=== PATIENT | male | born 1970 | race Caucasian/White ===

== ENCOUNTER 2024-04-08 14:59 | Outpatient (AMB) | payer MEDICAID, SELFPAY ==
--- NOTE | 2024-04-08 15:07 | GSCOFFNT_ITS ---
Vital Signs - [facility] 04/08/24 15:08 Height 1.73 m Height Method Stated Weight 72.83 kg Weight Measurement Method Standing Scale BMI 24.3 BP 137/87 H Blood Pressure Source Automatic Cuff Blood Pressure Location Right Upper Arm Position Sitting Respiration 19 Pulse 74 Pulse Source Monitor Temp 98.2 F Temp Source Temporal Artery Scan Pulse Oximetry (%) 96 Oxygen Delivery Method Room Air Med/Allergies Allergies & Medications Allergies No Known Allergies Allergy (Mild, Verified 04/08/24 15:08) Medication Reconciliation cephalexin 500 mg capsule 500 mg PO Q6H PRN Spasms 03/19/24 [History Confirmed 04/08/24] docusate sodium 100 mg capsule 100 mg PO DAILY 03/19/24 [History Confirmed 04/08/24] mupirocin 2 % topical ointment 1 ea topical BID 03/19/24 [History Confirmed 04/08/24] docusate sodium 100 mg capsule (Colace) 100 mg PO QDAY PRN constipation #30 caps 03/20/24 [Rx Confirmed 04/08/24] oxycodone-acetaminophen 5 mg-325 mg tablet (Percocet) 1 tab PO Q6HR PRN pain #20 tabs 03/20/24 [Rx Confirmed 04/08/24] MA Intake Visit Data Collection New Patient or Established: Established Patient (seen at [facility] within 3 years) Seen by Clinical Staff ONLY (RN/ESTEE): No Reason for Visit:: F/U HERNIA REPAIR Pain Present Currently: No [employer] Required: No PCP or OBGYN visit in last 3 months: Yes Hx Now: No Do You Feel Safe at Home: Yes Authorities Contacted: N/A Smoking Status Smoking Status: Never smoker Immunization / Flu Flu Vaccine in the Last 12 Months: No Flu Vaccine Exclusion Criteria: Refused by Patient Past Medical History Past Medical History NEUROLOGIC: Positive Neurological Disorders; Negative Seizures CARDIAC: Negative Cardiac Disorders or Congestive Heart Failure RESPIRATORY: Negative Chronic Obstructive Pulmonary Disease (COPD) GASTROINTESTINAL: Positive Gastrointestinal Disorders and Hemorrhoids; Negative Hepatitis GENITOURINARY: Negative Genitourinary Disorders or Renal Disease ENDOCRINE: Negative Endocrine Disorders, Diabetes Mellitus Type 1 or Diabetes Mellitus Type 2 HEMATOLOGIC: Negative Blood Disorders PSYCHO/SOCIAL: Positive Depression (no meds) and Anxiety OTHER HISTORY: Positive Chicken Pox, Measles and Mumps; Negative Hospitalization, Autoimmune Disease, Shingles, Blood Transfusions, Blood Transfusion Reaction, Anesthesia Reactions or Cancer Family History FAMILY HISTORY: Positive Family Cancer; Negative Family Psychiatric Problems, Family Respiratory Disorders, Family Cardiac Disorders, Family Gastrointestinal Problems, Family Surgery or Family Anesthesia Reaction Social History SMOKING STATUS: Smoking status: Never smoker ALCOHOL: Alcohol Intake: Current HOUSING: Housing: House HPI HPI Narrative 53M s/p inguinal hernia repair with mesh 03/20/24 here for planned follow up. Pt reports having mild soreness and numbness at the site, and he has noted some swelling to the area but it overall feels better compared to before surgery. He states his BMs are more regular, he is eating well and denies any fever or drainage from the wound. He did some relatively heavy lifting recently but did not notice any change to the area after ROS Review of Systems Systems Reviewed: All systems reviewed, normal except as documented Objective/Exam General General Appearance: alert, cooperative and well groomed Resp Respiratory exam: Absent respiratory distress Abdominal Abdominal exam: Present soft and incision (R inguinal incision with no surrounding erythema, no fluctuance or tenderness. There is swelling at the inferomedial aspect of the incision which is nontender and does not change with pt coughing); Absent distention or tenderness Assessment & Plan Diagnosis / Problem List (1) Inguinal hernia of right side without obstruction or gangrene: Status: Acute Assessment & Plan: 53M s/p R inguinal hernia repair with mesh 03/20, gradually recovering. I counseled pt to avoid strenuous activity including lifting >10lbs for 6 weeks postop and to place warm compresses to the area to manage the swelling. Pt expressed understanding and will follow up in 4 weeks Office Procedures GNS Level of Care Nursing/Assessment Patient Status: Established Patient Nursing Assessment/Reassesment: Medication Reconciliation, Update PMH in EMR and Vital Signs Coordination of Care: Complex Care and Chronic Disease 1-5, Education Complex Pt/Fam, Consent,records obtained, informed consent, Results/Orders obtained and Staff clarify orders Established Patient Charge Established Patient Point Assignment: 95 Established Patient Point Charge: EP Level 3 (80-115) Patient Portal Questionaires Social History Living Situation History Housing: House Tobacco History Smoking Status: Never smoker Alcohol History Alcohol Intake: Current Domestic Abuse History Do You Feel Safe at Home: Yes Review of Systems Report any current symptoms Only answer those that you have currently: Past Medical History Past Medical History Have you ever been diagnosed with any of the following: Neurological Problems Seizures: No Cardiology Problems Congestive Heart Failure: No Respiratory Problems Chronic Obstructive Pulmonary Disease (COPD): No Stomache/Intestinal Problems Hepatitis: No Hemorrhoids: Yes Genital/Urinary Problems Renal Disease: No Endocrine Problems Diabetes Mellitus Type 1: No Diabetes Mellitus Type 2: No Psychologic Problems Depression: Yes (no meds) Anxiety: Yes Other Problems Hospitalization: No Autoimmune Disease: No Shingles: No Blood Transfusions: No Blood Transfusion Reaction: No Anesthesia Reactions: No Chicken Pox: Yes Measles: Yes Mumps: Yes Cancer: No
[2024-04-08 15:08] VITALS: BP 137/87; PULSE 74; RESP 19; TEMP 36.8; O2SAT 96; BMI 24.3
== END 2024-04-08 15:17 | disposition home or self-care (01) ==
LOC: HODSRG 14:59
PROVIDERS: PCP Family Medicine; Referring Provider Family Medicine; Supervising Provider Surgery; Visit Provider Surgery
DX: Z48.815 Encounter for surgical aftercare following surgery on the digestive system (principal)
CPT/HCPCS: 99213; G0463